=== PATIENT | male | born 1990 | race Caucasian/White ===

== ENCOUNTER → 2017-09-07 | Outpatient (CLI) | payer BC ==
--- NOTE | 2017-09-07 08:32 | CT ---
EXAMINATION TYPE: CT shoulder RT wo con DATE OF EXAM: 09/07/2017 COMPARISON: NONE HISTORY: Rt scapula fx, hockey injury CT DLP: 266.9 mGycm Automated exposure control for dose reduction was used. Contiguous axial CT slices were obtained of t [place] right shoulder with 3-D reformats performed at a separate workstation as well as axial, coronal an d sagittal reformats performed in bone algorithm. FINDINGS: As noted by the patient history there is a nondisplaced minimally comminuted right scapular fracture extending cranially into the acromion on series 7 image 31 through 40. The mild comminution is seen o n series 7 image 28. This is a primarily vertically oriented fracture. Minimal soft tissue swelling i s seen posteriorly over the clavicular fracture. Muscle volume is unremarkable without gross evidence of intramuscular hematoma. There is no extension into the suprascapular notch. No radio opaque forei gn body. The visualized ribs are intact and nondisplaced. There is no evidence of right-sided pneumothorax and the visualized portions of the lung. Visualized portions of the right lung are clear. Axilla is unre markable without hematoma or adenopathy. There is no extension of the primary fracture into the gleno id. Visualized portions of the right clavicle are intact. Right humerus is also intact in its visuali zed portions. Small sclerotic focus of the humeral head is favored to represent a bone island measuri ng 4 mm on series 7 image 30. There is no evidence of acromioclavicular separation. Small os acromial e is noted. IMPRESSION: MINIMALLY COMMINUTED NONDISPLACED VERTICALLY ORIENTED SCAPULAR BODY FRACTURE EXTENDING INTO THE INFER IOR ASPECT OF THE ACROMION. NO SECONDARY FRACTURE, PNEUMOTHORAX, GROSS EVIDENCE OF INTRAMUSCULAR ZAINAB DAXA, OR RADIOPAQUE FOREIGN BODY. THERE IS NO EXTENSION OF THE PRIMARY FRACTURE INTO THE SUPRASCAPULA R NOTCH OR GLENOID.
== END | disposition home or self-care (01) ==
LOC: RADCTMAIN 07:29
PROVIDERS: ATTEND Orthopaedic Surgery
DX: S42.114A Nondisplaced fracture of body of scapula, right shoulder, initial encounter for closed fracture (principal)

== ENCOUNTER → 2018-01-31 | Outpatient (CLI) | payer BC ==
[2018-01-31 17:35] LABS: Basophils % (A) 0 %; Eosinophils # (A) 0.1 k/uL (0-0.7); Eosinophils % (A) 1 %; HCT 44.6 % (39.0-53.0); Lymphocytes # (A) 1.2 k/uL (1.0-4.8); Lymphocytes % (A) 16 %; MCH 27.9 pg (25.0-35.0); MCHC 33.5 g/dL (31.0-37.0); MCV 83.1 fL (80.0-100.0); Mean Platelet Volume 7.2; Monocytes # (A) 0.4 k/uL (0-1.0); Monocytes % (A) 5 %; Neutrophils # (A) 5.4 k/uL (1.3-7.7); Neutrophils % (A) 76 %; Platelet Count 232 k/uL (150-450); RBC 5.37 m/uL (4.30-5.90); RDW 13.1 % (11.5-15.5); WBC 7.1 k/uL (3.8-10.6)
[2018-01-31 18:17] LABS: T4, Free (Free Thyroxine) 0.87 ng/dL (0.78-2.19)
[2018-02-02 15:00] LABS: Avocado Class CLASS 0; Banana IgE Class CLASS 0; Cow's Milk IgE Class CLASS 0; Egg White IgE <0.35 kU/L (<0.35); Hazelnut IgE <0.35 kU/L (<0.35); Hazelnut IgE Class CLASS 0; Kiwi IgE <0.35 kU/L (<0.35); Peanut IgE <0.35 kU/L (<0.35); Potato IgE Class CLASS I; Soybean IgE <0.35 kU/L (<0.35)
[2018-02-05 13:37] LABS: Apple IgG 3.4 mcg/mL (< 2.0); Banana IgG 7.9 mcg/mL (< 2.0); Beef IgG 23.5 mcg/mL (< 2.0); Crab IgG 2.8 mcg/mL (< 2.0); Orange IgG 8.4 mcg/mL (< 2.0); Pork IgG 5.8 mcg/mL (< 2.0)
[2018-02-05 13:38] LABS: Chicken Meat IgG < 2.0 mcg/mL (< 2.0); Corn IgG 9.7 mcg/mL (< 2.0); Peanut IgG 4.6 mcg/mL (< 2.0); Potato IgG 2.5 mcg/mL (< 2.0); Soybean IgG 3.5 mcg/mL (< 2.0); Tomato IgG 3.8 mcg/mL (< 2.0); Wheat IgG 26.4 mcg/mL (< 2.0)
== END | disposition home or self-care (01) ==
LOC: LABWHC1 17:09
PROVIDERS: ATTEND Otolaryngology
DX: E05.90 Thyrotoxicosis, unspecified without thyrotoxic crisis or storm (principal); R63.4 Abnormal weight loss; L50.0 Allergic urticaria; J30.89 Other allergic rhinitis; B44.89 Other forms of aspergillosis
CPT/HCPCS: 36415; 84439; 84443; 84480; 85025; 86001; 86003; 86038

== ENCOUNTER → 2018-08-16 | Outpatient (CLI) | payer BC ==
--- NOTE | 2018-08-16 18:02 | ECHOF ---
Referral Reason:R07.9 Chest pain MEASUREMENTS -------- HEIGHT: 188.0 cm WEIGHT: 72.6 kg BP: RVIDd: 2.6 cm (< 3.3) IVSd: 1.1 cm (0.6 - 1.1) LVIDd: 4.0 cm (3.9 - 5.3) LVPWd: 1.1 cm (0.6 - 1.1) IVSs: 1.3 cm LVIDs: 2.3 cm LVPWs: 1.5 cm LAESV Index (A-L): 22.91 ml/m Ao Diam: 3.3 cm (2.0 - 3.7) AV Cusp: 2.4 cm (1.5 - 2.6) LA Diam: 2.6 cm (2.7 - 3.8) MV EXCURSION: 21.150 mm (> 18.000) MV EF SLOPE: 148 mm/s (70 - 150) MV E James: 0.80 m/s MV DecT: 358 ms MV A James: 0.65 m/s MV E/A Ratio: 1.22 RAP: 5.00 mmHg RVSP: 7.97 mmHg FINDINGS -------- Sinus rhythm. This was a technically good study. The left ventricular size is normal. Left ventricular wall thickness is normal. Overall left vent ricular systolic function is normal with, an EF between 55 - 60 %. The right ventricle is normal in size and function. Normal LA size by volume 22+/-6 ml/m2. The right atrium is normal in size. The aortic valve is trileaflet, and appears structurally normal. No aortic stenosis or regurgitation. The mitral valve is normal. There is trace mitral regurgitation. Trace tricuspid regurgitation present. Right ventricular systolic pressure is normal at < 35 mmHg. There is no evidence of pulmonary hypertension. Trace/mild (physiologic) pulmonic regurgitation. The aortic root size is normal. Normal inferior vena cava with normal inspiratory collapse consistent with estimated right atrial pre ssure of 5 mmHg. There is no pericardial effusion. CONCLUSIONS -------- 1. Sinus rhythm. 2. This was a technically good study. 3. The left ventricular size is normal. 4. Left ventricular wall thickness is normal. 5. Overall left ventricular systolic function is normal with, an EF between 55 - 60 %. 6. Normal LA size by volume 22+/-6 ml/m2. 7. The aortic valve is trileaflet, and appears structurally normal. No aortic stenosis or regurgitati on. 8. There is trace mitral regurgitation. 9. Trace tricuspid regurgitation present. 10. Right ventricular systolic pressure is normal at < 35 mmHg. 11. There is no evidence of pulmonary hypertension. 12. Trace/mild (physiologic) pulmonic regurgitation. 13. The aortic root size is normal. 14. There is no pericardial effusion. POLICE COMMISSIONER: Brian Centeno RDCS
== END | disposition home or self-care (01) ==
LOC: RADECHMAIN 16:16
PROVIDERS: ATTEND Family Medicine
DX: R07.9 Chest pain, unspecified (principal)
CPT/HCPCS: 93306